=== PATIENT | female | born 1975 | race Caucasian/White ===

== ENCOUNTER → 2024-10-06 14:45 | Outpatient (REF) | payer BC, SELFPAY | LOC: HWWDC 14:45 | PROVIDERS: ATTENDING PHYSICIAN Physician Assistant | DX: Z12.31 Encounter for screening mammogram for malignant neoplasm of breast (principal) | CPT/HCPCS: 77063; 77067 ==

== ENCOUNTER → 2024-11-28 09:39 | Outpatient (REF) | payer BC, SELFPAY | LOC: RAD 09:39 | PROVIDERS: ATTENDING PHYSICIAN Internal Medicine | DX: R40.4 Transient alteration of awareness (principal) | CPT/HCPCS: 70450 ==

== ENCOUNTER → 2025-01-27 06:46 | Outpatient (REF) | payer BC, SELFPAY | LOC: PAVMRI 06:46 | PROVIDERS: ATTENDING PHYSICIAN Internal Medicine | DX: G93.5 Compression of brain (principal) | CPT/HCPCS: 70551; 72141 ==